=== PATIENT | female | born 1995 | race Two or more races ===

== ENCOUNTER 2024-01-23 16:05 | Emergency (ER) | payer OTHER ==
[2024-01-23 16:46] VITALS: BP 119/71; PULSE 89; RESP 18; TEMP 98.1; BMI 27.8
[2024-01-23] MEDS ORDERED: ACETAMINOPHEN 325 MG TABLET (FP) ONE (16:49)
[2024-01-23] MEDS: ACETAMINOPHEN 325 MG TABLET (FP) PO ONE (16:55)
== END 2024-01-23 17:46 | disposition home or self-care (01) ==
LOC: JER 16:05
DX: M25.512 Pain in left shoulder (principal); X50.1XXA Overexertion from prolonged static or awkward postures, initial encounter
CPT/HCPCS: 73030-TC-LT-FY; 99283-25